=== PATIENT | female | born 1980 | race Caucasian/White ===

== ENCOUNTER → 2019-11-03 12:14 | Outpatient (BNVA) | payer SELFPAY | PROVIDERS: Visit Provider Family Medicine | DX: S61.419A Laceration without foreign body of unspecified hand, initial encounter (principal); X58.XXXA Exposure to other specified factors, initial encounter; L08.9 Local infection of the skin and subcutaneous tissue, unspecified | CPT/HCPCS: 73130 ==

== ENCOUNTER → 2020-01-10 16:36 | Outpatient (BNVA) | payer SELFPAY | PROVIDERS: Visit Provider Family Medicine | DX: R39.89 Other symptoms and signs involving the genitourinary system (principal); M54.9 Dorsalgia, unspecified; M54.5 Low back pain; R30.0 Dysuria; I10 Essential (primary) hypertension; G89.29 Other chronic pain | CPT/HCPCS: 80053; 81000; 85025 ==

== ENCOUNTER 2020-01-16 11:50 | Emergency (ER) | payer SELFPAY ==
[2020-01-16 11:56] VITALS: BP 161/84; PULSE 96; RESP 18; TEMP 36.9; O2SAT 97; BMI 29.8
[2020-01-16 12:24] VITALS: O2SAT 98
[2020-01-16 12:32] LABS: Basophils # 0.1 10^3/uL (0.0-0.1); Basophils % 0.6 %; Eosinophils # 0.3 10^3/uL (0.0-0.8); Eosinophils % 2.1 %; Hematocrit 47.8 % (37.0-47.0); Hemoglobin 15.1 g/dL (11.5-15.3); Lymphocytes # 4.4 10^3/uL (0.8-4.8); Lymphocytes % 27.2 %; Mean Corpuscular HGB Conc 31.6 g/dL (30.0-36.0); Mean Corpuscular Hemoglobin 31.7 pg (28.0-34.0); Mean Corpuscular Volume 100.2 fL (81-99); Mean Platelet Volume 11.4 fL (7.4-10.4); Monocytes # 0.9 10^3/uL (0.2-0.9); Monocytes % 5.6 %; Neutrophils # 10.45 10^3/uL (1.8-7.7); Nucleated Red Blood Cells % 0 %; Platelet Count 382 10^3/cmm (130-400); Red Blood Count 4.77 10^6/uL (4.1-5.3); Red Cell Distribution Width 12.6 % (12.1-15.1); White Blood Count 16.3 10^3/uL (4.0-10.0)
[2020-01-16] MEDS: sodium chloride 0.9% 1,000 ML 999 ML IV ×2 (12:32→12:39)
--- NOTE | 2020-01-16 12:32 | W.ED.FEMALGU ---
HPI - Female Genitourinary General: Chief complaint: Urogenital-Female Stated complaint: KIDNEY AND GROIN PAIN Time Seen by Provider: 01/16/20 11:58 History of Present Illness: HPI Narrative: 1-year-old female presents emergency room with complaint of flank pain bilaterally radiating down through the flank into this groin and pelvic area. She seen Dr. Morris who is her primary care doctor earlier this week and was told she had abnormal labs like there was a kidney problem she is not more specific she denies any hematuria denies any history of nephrolithiasis she has had some dysuria and a single episode of incontinence which is unusual for her no frequency she denies fever but has had some nausea. This morning she took some Percocet she had been given previously Dr. Morris had written her a prescription for methocarbamol and hydrocodone for musculoskeletal back pain. He denies any respiratory symptoms. MD elicited complaint: dysuria, pelvic pain and flank pain Pertinent past history: urinary incontinence (Single episode) Onset (ago): day(s) Location of symptoms: pelvis and flank Severity: moderate (Pain disproportionate to exam) Female Urogenital Radiation: Non-Radiating and Suprapubic Quality of pain: cramping and aching Consistency: constant Vaginal discharge: none Vaginal bleeding: none Urinary symptoms: Dysuria and Flank Pain Exacerbating factors: movement Relieving factors: other Associated symptoms: Reports nausea; Deny abdominal pain, short of breath, fevers/chills, headache(s), seizures, syncope, vaginal discharge or weakness Treatment prior to arrival: other (P.o. narcotics) Patient : No Review of Systems Const: Denies: fever(s), chills, body aches, change in appetite, fatigue or malaise ENMT: Denies: throat pain, ear or mastoid pain, nasal discharge or nasal congestion Card: Denies: syncope Resp: Denies: dyspnea, productive cough or non-productive cough GI: Reports: nausea; Denies: abdominal pain : Denies: vaginal discharge Skin/Breast: Denies: rash or pruritus Neuro: Denies: headache(s) [facility] ED PFSH: Medical History (Updated 01/16/20 @ 13:45 by Abhishek Bedoya DO) Back pain, chronic COPD (chronic obstructive pulmonary disease) Essential hypertension Surgical History (Updated 08/16/20 @ 12:36 by Abhishek Bedoya DO) History of hysterectomy Hx of cholecystectomy Family History Other Cancer Denies family history of Bleeding disorder Social History Smoking and tobacco status: current every day smoker Quit status (tobacco): not considering quitting Alcohol intake: never Desire information about alcohol rehabilitation?: No Desire information about substance/drug rehabilitation?: No Current occupational status: employed History of recent travel: No Current gender identity: Female Physical Exam Const: COMMON NORMALS: average body habitus, patient oriented x3 and alert GENERAL APPEARANCE: cooperative, comfortable, well kempt and well developed NUTRITIONAL APPEARANCE: obese ORIENTATION/CONSCIOUSNESS: Yes awake, Yes oriented to person and Yes oriented to place HENMT: COMMON NORMALS: normocephalic, atraumatic and EAC's normal HEAD & SCALP: normocephalic and atraumatic EXTERNAL AUDITORY CANAL: EAC's normal Eye: COMMON NORMALS: Equal, round and reactive pupils present, EOMs intact bilaterally, conjunctivae normal and no scleral icterus CONJUNCTIVA: Yes conjunctivae normal PUPIL: Yes Equal, round and reactive pupils present Neck/C-Spine: COMMON NORMALS: full ROM, no lymphadenopathy, supple, no meningeal signs and Thyroid normal THYROID: Thyroid normal and asymmetrical Lymph: LYMPHATIC: no lymphadenopathy noted Resp: COMMON NORMALS: normal respiratory effort, No retractions, No use of accessory muscles and clear to auscultation bilaterally AUSCULTATION: clear to auscultation bilaterally Cardio: COMMON NORMALS: regular rate and regular rhythm RATE: regular rate RHYTHM: regular rhythm HEART SOUNDS: no murmurs GI: COMMON NORMALS: Normal to inspection, nondistended, normoactive bowel sounds present, Soft to palpation and No hepatosplenomegaly present PALPATION: Yes Soft to palpation and Yes No hepatosplenomegaly present : COMMON NORMALS: Yes no CVA tenderness BLADDER/KIDNEY EXAM: Yes no CVA tenderness Back/Pelvis: COMMON NORMALS: no CVA tenderness LUMBAR SPINE/LOWER BACK: Yes normal to inspection Extremity: COMMON NORMALS: no clubbing, cyanosis or edema, no calf tenderness and no pedal edema Neuro: COMMON NORMALS: patient oriented x3 SENSORIUM/ORIENTATION: Yes alert, Yes oriented to person and Yes oriented to place MENINGEAL SIGNS: Yes no meningeal signs Psych: APPEARANCE: Yes well kempt Skin: COMMON NORMALS: no rashes or lesions noted and turgor normal GENERAL SKIN EXAM: no rashes or lesions noted and turgor normal Course Vital Signs: Vital signs: Vital Signs Temperature 98.5 F 01/16/20 11:56 Pulse Rate 71 01/16/20 14:02 Respiratory Rate 18 01/16/20 14:02 Blood Pressure 151/60 01/16/20 14:02 Pulse Oximetry 96 01/16/20 14:02 MDM - Female MDM Narrative: Medical decision making narrative: Patient's creatinine earlier in week was 1.8 today it is 1.2 her back pain does not appear to be secondary to her kidneys. She has severe pain with light touch or palpation disproportionate to exam cannot even do a proper Portillo's punch to evaluate. Her urine is clear. We will go ahead and discharge her home also discussed with her elevated liver enzymes. When talking to her she been taking a lot of ibuprofen and Tylenol I think those may be the cause of the problem additionally she is on lisinopril hydrochlorothiazide will change to plain lisinopril 5 mg daily and amlodipine 5 p.o. daily continue use the previously prescribed medications for pain control for her back I follow-up with her regular doctor with the next 2 days for further adjustment of her blood pressure medicines and follow-up on her elevated liver enzymes and back pain. Return if she has further problems. Lab Data: Labs: Lab Results 01/16/20 01/16/20 01/16/20 Range/Units 12:17 12:17 12:17 WBC 16.3 H (4.0-10.0) 10^3/ uL RBC 4.77 (4.1-5.3) 10^6/u L Hgb 15.1 (11.5-15.3) g/dL Hct 47.8 H (37.0-47.0) % MCV 100.2 H (81-99) fL MCH 31.7 (28.0-34.0) pg MCHC 31.6 (30.0-36.0) g/dL RDW 12.6 (12.1-15.1) % Plt Count 382 (130-400) 10^3/c mm MPV 11.4 H (7.4-10.4) fL Neut % (Auto) 64.0 % Lymph % (Auto) 27.2 % [place] % (Auto) 5.6 % Eos % (Auto) 2.1 % Baso % (Auto) 0.6 % Neut # (Auto) 10.45 H (1.8-7.7) 10^3/u L Lymph # (Auto) 4.4 (0.8-4.8) 10^3/u L [place] # (Auto) 0.9 (0.2-0.9) 10^3/u L Eos # (Auto) 0.3 (0.0-0.8) 10^3/u L Baso # (Auto) 0.1 (0.0-0.1) 10^3/u L Nucleated RBC % (a uto) 0 % Nucleated RBCs # 0.0 /100WBC PT (12.1-14.9) SECO NDS INR (0.8-1.2) APTT (23.9-36.7) SECO NDS Sodium 134 L (136-145) mmol/L Potassium 4.0 (3.5-5.1) mmol/L Chloride 96 L (98-107) mmol/L Carbon Dioxide 28 (22-29) mmol/L Anion Gap 14.0 (5-19) BUN 20 (6-20) mg/dL Creatinine 1.2 H (0.5-0.9) mg/dL GFR Calculation 49.5 L (90-130) mL/min Glucose 128 H (65-115) mg/dL Calculated Osmolal ity 276 L (285-295) mOsm/k g Calcium 9.0 (8.5-10.5) mg/dL Magnesium 2.5 H (1.7-2.3) mg/dL Total Bilirubin 0.2 (0.15-1.2) mg/dL AST 147 H (0-32) U/L ALT 221 H (0-33) U/L Alkaline Phosphata se 154 H (35-105) IU/L Creatine Kinase 60 (26-192) U/L Total Protein 7.8 (6.6-8.7) g/dL Albumin 4.5 (3.5-5.2) g/dL Globulin 3.3 (1.3-4.6) g/dL Urine Color (Yellow) Urine Appearance (CLEAR) Urine pH (5-7) Ur Specific Gravit y (1.005-1.030) Urine Protein (Negative) Urine Glucose (UA) (Normal) Urine Ketones (Negative) Urine Blood (Negative) Urine Nitrate (Negative) Urine Bilirubin (NEGATIVE) Prot Sulfosalicyli c Acd (Negative) Urine Urobilinogen (Negative) mg/dL Ur Leukocyte Yoli ase (Negative) Hepatitis A IgM Ab (Nonreactive) Hep Bs Antigen (Nonreactive) Hep B Core IgM Ab (Nonreactive) Hepatitis C Antibo dy (Nonreactive) 01/16/20 01/16/20 01/16/20 Range/Units 12:17 12:17 12:21 WBC (4.0-10.0) 10^3/ uL RBC (4.1-5.3) 10^6/u L Hgb (11.5-15.3) g/dL Hct (37.0-47.0) % MCV (81-99) fL MCH (28.0-34.0) pg MCHC (30.0-36.0) g/dL RDW (12.1-15.1) % Plt Count (130-400) 10^3/c mm MPV (7.4-10.4) fL Neut % (Auto) % Lymph % (Auto) % [place] % (Auto) % Eos % (Auto) % Baso % (Auto) % Neut # (Auto) (1.8-7.7) 10^3/u L Lymph # (Auto) (0.8-4.8) 10^3/u L [place] # (Auto) (0.2-0.9) 10^3/u L Eos # (Auto) (0.0-0.8) 10^3/u L Baso # (Auto) (0.0-0.1) 10^3/u L Nucleated RBC % (a uto) % Nucleated RBCs # /100WBC PT 11.70 L (12.1-14.9) SECO NDS INR 0.83 (0.8-1.2) APTT 33.2 (23.9-36.7) SECO NDS Sodium (136-145) mmol/L Potassium (3.5-5.1) mmol/L Chloride (98-107) mmol/L Carbon Dioxide (22-29) mmol/L Anion Gap (5-19) BUN (6-20) mg/dL Creatinine (0.5-0.9) mg/dL GFR Calculation (90-130) mL/min Glucose (65-115) mg/dL Calculated Osmolal ity (285-295) mOsm/k g Calcium (8.5-10.5) mg/dL Magnesium (1.7-2.3) mg/dL Total Bilirubin (0.15-1.2) mg/dL AST (0-32) U/L ALT (0-33) U/L Alkaline Phosphata se (35-105) IU/L Creatine Kinase (26-192) U/L Total Protein (6.6-8.7) g/dL Albumin (3.5-5.2) g/dL Globulin (1.3-4.6) g/dL Urine Color Yellow (Yellow) Urine Appearance Clear (CLEAR) Urine pH 8 H (5-7) Ur Specific Gravit y 1.010 (1.005-1.030) Urine Protein Neg (Negative) Urine Glucose (UA) Norm (Normal) Urine Ketones Negative (Negative) Urine Blood Neg (Negative) Urine Nitrate Negative (Negative) Urine Bilirubin Neg (NEGATIVE) Prot Sulfosalicyli c Acd Negative (Negative) Urine Urobilinogen Norm (Negative) mg/dL Ur Leukocyte Yoli ase Negative (Negative) Hepatitis A IgM Ab Non-reactive (Nonreactive) Hep Bs Antigen Non-reactive (Nonreactive) Hep B Core IgM Ab Non-reactive (Nonreactive) Hepatitis C Antibo dy Non-reactive (Nonreactive) Discharge Plan Discharge Patient Disposition: Home Clinical Impression: Back pain, chronic, Essential hypertension, CKD (chronic kidney disease) Condition: Stable Prescriptions: New amlodipine 5 mg tablet 5 mg PO DAILY Qty: 30 RF: 0 lisinopril 5 mg tablet 5 mg PO DAILY Qty: 30 RF: 0 Discontinued lisinopril-hydrochlorothiazide 20-25 mg tablet 1 tab PO BID 30 Days Qty: 60 RF: 2 No Action pregabalin 75 mg capsule 75 mg PO BID 30 Days Qty: 60 RF: 2 methocarbamol 750 mg tablet 750 mg PO TID 30 Days Qty: 90 RF: 2 Discharge Orders: Discharge Order (Routine); Ordered 01/16/20 Ordered By: Abhishek Bedoya Referrals: Jer Jimenez DO [Primary Care Provider] - Discharge Diet: Usual diet Discharge Activity: Increase activity as tolerated Activity Restrictions/Additional Instructions: Limit your Tylenol and ibuprofen intake for now. Follow-up with your primary care doctor in the next 2 to 3 days to reevaluate blood pressure due to the blood pressure medication changes as well as following up on the abnormal liver function tests. Your white count was also elevated today if you do develop fever or other signs of infection return to the emergency room immediately. Use previously prescribed medications for your low back pain. Discharge Date/Time: 01/16/20 14:10 Coding Level of Care Code ED Track Rider for Rosi Fwgenia Exam Comprehensive
[2020-01-16 12:35] VITALS: RESP 18; O2SAT 97
[2020-01-16] MEDS: morphine 4 mg/mL SDV 1 mL 2 MG IVP (12:35)
[2020-01-16] MEDS: ondansetron 2 mg/ML SDV 2 mL 4 MG IVP (12:35)
[2020-01-16 12:36] VITALS: BP 142/60; PULSE 74; RESP 18; O2SAT 95
[2020-01-16 12:53] LABS: Alanine Aminotransferase 221 U/L (0-33); Albumin Level 4.5 g/dL (3.5-5.2); Alkaline Phosphatase 154 IU/L (35-105); Aspartate Amino Transferase 147 U/L (0-32); Blood Urea Nitrogen 20 mg/dL (6-20); Carbon Dioxide 28 mmol/L (22-29); Chloride 96 mmol/L (98-107); Globulin 3.3 g/dL (1.3-4.6); Glomerular Filtration Rate 49.5 mL/min (90-130); Glucose 128 mg/dL (65-115); Osmolality Calculated 276 mOsm/kg (285-295); Sodium 134 mmol/L (136-145); Total Bilirubin 0.2 mg/dL (0.15-1.2); Total Protein 7.8 g/dL (6.6-8.7)
[2020-01-16 12:54] LABS: Creatine Phosphokinase 60 U/L (26-192); Magnesium 2.5 mg/dL (1.7-2.3)
[2020-01-16 12:55] LABS: Add Urine Microscopic? NO
[2020-01-16 13:00] LABS: Bilirubin Urine Neg (NEGATIVE); Blood Urine Neg (Negative); Glucose Urine UA Norm (Normal); Ketones Urine Negative (Negative); Leukocyte Esterase Urine Negative (Negative); Nitrate Urine Negative (Negative); Protein Urine Neg (Negative); Sulfosalicylic Acid Urine Negative (Negative); Urine Appearance Clear (CLEAR); Urine Color Yellow (Yellow); Urobilinogen Urine Norm (Negative); pH Urine 8 (5-7)
--- NOTE | 2020-01-16 13:03 | XRR_ITS ---
PROCEDURE INFORMATION: Exam: XR Chest, 1 View Exam date and time: 01/16/2020 1:03 PM Age: 39 years old Clinical indication: Cough and dyspnea; Additional info: Dyspnea/cough TECHNIQUE: Imaging protocol: XR of the chest Views: 1 view. COMPARISON: CR Chest 2 views* [id number] 06/26/2016 6:05 PM FINDINGS: Lungs: Unremarkable. No consolidation. Pleural space: Unremarkable. No pleural effusion. No pneumothorax. Heart/Mediastinum: Unremarkable. No cardiomegaly. Bones/joints: Unremarkable. XR/XR chest 1V portable [id number] IMPRESSION: No acute findings.
[2020-01-16 13:19] LABS: INR 0.83 (0.8-1.2)
[2020-01-16 13:20] LABS: Partial Thromboplastin Time 33.2 SECONDS (23.9-36.7)
[2020-01-16 13:29] LABS: Hepatitis A Antibody IgM Non-Reactive (Nonreactive); Hepatitis B Core IgM Non-Reactive (Nonreactive); Hepatitis B Surface Antigen Non-Reactive (Nonreactive); Hepatitis C Virus Antibody Non-Reactive (Nonreactive)
[2020-01-16 13:51] VITALS: BP 121/83; PULSE 78; RESP 18; O2SAT 96
[2020-01-16 14:02] VITALS: BP 151/60; PULSE 71; RESP 18; O2SAT 96
== END 2020-01-16 14:10 | disposition home or self-care (01) ==
PROVIDERS: Emergency Medicine; Emergency Provider Family Medicine
DX: G89.29 Other chronic pain (principal); M54.9 Dorsalgia, unspecified; I12.9 Hypertensive chronic kidney disease with stage 1 through stage 4 chronic kidney disease, or unspecified chronic kidney disease; N18.9 Chronic kidney disease, unspecified; J44.9 Chronic obstructive pulmonary disease, unspecified; F17.210 Nicotine dependence, cigarettes, uncomplicated
CPT/HCPCS: 12345; 36415; 51798; 71045; 80053; 80074; 81003; 82550; 83735; 85025; 85610; 85730; 96361; 96374; 96375; 99283; 99284; J2270; J2405; J7030

== ENCOUNTER → 2020-01-31 16:07 | Outpatient (BNVA) | payer SELFPAY | PROVIDERS: Visit Provider Family Medicine | DX: G89.29 Other chronic pain (principal); M54.9 Dorsalgia, unspecified; I10 Essential (primary) hypertension | CPT/HCPCS: 80053; 85025 ==

== ENCOUNTER → 2020-02-03 15:13 | Outpatient (BNVA) | payer SELFPAY | PROVIDERS: Visit Provider Family Medicine | DX: G89.29 Other chronic pain (principal); M54.9 Dorsalgia, unspecified; R30.0 Dysuria; I10 Essential (primary) hypertension | CPT/HCPCS: 80053; 81000 ==

== ENCOUNTER → 2020-02-21 10:54 | Outpatient (BNVA) | payer SELFPAY | PROVIDERS: Visit Provider Family Medicine | DX: R50.9 Fever, unspecified (principal) | CPT/HCPCS: 87635 ==

== ENCOUNTER 2020-10-04 15:15 | Outpatient (CLI) | payer BC, MEDICAID, SELFPAY ==
--- NOTE | 2020-10-04 15:29 | XR_ITS ---
WS: [id number] Lumbar spine, 3 views, 10/04/2020 Clinical Data: MIDLINE LOW BACK PAIN WITH BILAT SCIATICA Comparison: None. Findings: No compression fractures or subluxation is seen. No disc space narrowing is seen. The transverse proc esses and SI joints are normal. There is minimal osteoarthritic spurring at L3-L5. There are clips in the right upper quadrant from a cholecystectomy. XR/XR lumbar spine 2-3V* [id number] Impression: Minimal osteoarthritis L3-L5.
== END 2020-10-04 15:16 | disposition home or self-care (01) ==
PROVIDERS: Visit Provider Family Medicine
DX: M54.42 Lumbago with sciatica, left side (principal); M54.41 Lumbago with sciatica, right side; G89.29 Other chronic pain; M47.816 Spondylosis without myelopathy or radiculopathy, lumbar region
CPT/HCPCS: 72100

== ENCOUNTER 2020-12-05 09:28 | Outpatient (CLI) | payer BC, MEDICAID, SELFPAY ==
--- NOTE | 2020-12-05 09:31 | MR_ITS ---
WS: [id number] MRI LUMBAR SPINE NONCONTRAST HISTORY: LOW BACK PAIN COMPARISON: None available. TECHNIQUE: Sagittal and axial multisequence imaging is submitted. Straightening of the normal lumbar lordosis. No marrow edema or fracture. Disc spaces are narrowed and desiccated throughout the lumbar spine. Conus terminates normally at L1-2 disc level. L1-L2: Mild annular disc bulging with facet and ligamentum flavum hypertrophy. Mild LEFT subarticular recess and foraminal stenosis. L2-L3: Mild annular disc bulging with ligamentum flavum hypertrophy and facet arthritis. Very mild na rrowing of the LEFT foramen. L3-L4: Mild annular disc bulging and osteophytic ridging. Small amount of fluid in the facet joints b ilaterally. No significant stenosis. Very slight narrowing of the RIGHT subarticular recess. L4-L5: Mild ligamentum flavum disease and facet disease and disc bulging. No significant stenosis. L5-S1: Broad-based disc protrusion encroaching upon the ventral thecal sac. The thecal sac is widely patulous without stenosis. Paravertebral soft tissues are negative. MR/MR lumbar spine wo con* [id number] IMPRESSION: 1. Quality of this examination is limited by body habitus. 2. Multilevel degenerative disc disease and facet joint arthritis. Degenerativ e changes are throughout the lumbar spine. 3. No significant central or foraminal stenosis. 4. Mild LEFT subarticular recess and foraminal stenosis at L1-2, RIGHT subarti cular recess at L3-4 and in the LEFT foramen at L2-3. 5. Broad-based disc protrusion at L5-S1 without nerve root encroachment.
== END 2020-12-05 09:29 | disposition home or self-care (01) ==
LOC: RADSHAW 09:30
PROVIDERS: PCP Family Medicine; Visit Provider Nurse Practitioner
DX: M43.07 Spondylolysis, lumbosacral region (principal); M51.27 Other intervertebral disc displacement, lumbosacral region; M48.061 Spinal stenosis, lumbar region without neurogenic claudication
CPT/HCPCS: 72148

== ENCOUNTER 2020-12-12 10:56 | Outpatient (CLI) | payer BC, MEDICAID, SELFPAY ==
--- NOTE | 2020-12-12 | XR_ITS ---
WS: [id number] LATERAL LUMBAR SPINE: 3 view. Lateral radiographs are performed in upright neutral, flexion and extension to the patient's toleranc e. HISTORY: SPONDYLOLYSIS COMPARISON: 10/04/2020 Posterior lumbar alignment is normal. Facet joint arthritis is moderate at L4-5 and L5-S1. Schmorl's nodes along the superior endplates of T12, L1 and L2. With flexion and extension no instability is no raheem. XR/XR lumbar spine f/e only [id number] IMPRESSION: No lumbar spine instability. Moderate facet joint arthritis at L4-5 and L5-S1.
== END 2020-12-12 10:57 | disposition home or self-care (01) ==
PROVIDERS: PCP Family Medicine; Visit Provider Nurse Practitioner
DX: M43.06 Spondylolysis, lumbar region (principal); M43.07 Spondylolysis, lumbosacral region
CPT/HCPCS: 72120

== ENCOUNTER → 2021-07-17 10:13 | Outpatient (BNVA) | payer BC, MEDICAID, SELFPAY | PROVIDERS: PCP Family Medicine; Visit Provider Emergency Medicine | DX: J44.9 Chronic obstructive pulmonary disease, unspecified (principal); R05.9 Cough, unspecified; U07.1 COVID-19 | CPT/HCPCS: 71046 ==

== ENCOUNTER → 2022-03-11 11:27 | Outpatient (BNVA) | payer BC, MEDICAID, SELFPAY | PROVIDERS: PCP Family Medicine; Visit Provider Nurse Practitioner Family | DX: S89.92XA Unspecified injury of left lower leg, initial encounter (principal); X58.XXXA Exposure to other specified factors, initial encounter | CPT/HCPCS: 73562 ==

== ENCOUNTER 2022-03-14 11:43 | Outpatient (CLI) | payer BC, MEDICAID, SELFPAY | END 2022-03-14 11:44 | disposition home or self-care (01) | LOC: SPT 11:44 | PROVIDERS: PCP Family Medicine; Visit Provider Nurse Practitioner Family | DX: Z46.89 Encounter for fitting and adjustment of other specified devices (principal); M25.561 Pain in right knee | CPT/HCPCS: 97760; L1812 ==

== ENCOUNTER → 2023-04-12 12:45 | Outpatient (BNVA) | payer BC, MEDICAID, SELFPAY | PROVIDERS: PCP Family Medicine; Visit Provider Emergency Medicine | DX: S67.21XA Crushing injury of right hand, initial encounter (principal); X58.XXXA Exposure to other specified factors, initial encounter | CPT/HCPCS: 73130 ==